=== PATIENT | male | born 1950 | race Caucasian/White ===

== ENCOUNTER 2017-12-16 18:26 | Emergency (ER) | payer MEDICARE ==
[~2017-12-16] VITALS: Ht 182.9 cm; Wt 120.2 kg
[2017-12-16] MEDS ORDERED: TETANUS/DIPHTHERIA TOX ADULT 0.5 ML SYR IM ONE (19:15)
[2017-12-16] MEDS ORDERED: LIDOCAINE 1% W/EPINEPHRINE 20 ML VIAL INJ ONE (19:15)
--- NOTE | 2017-12-16 19:29 | Diagnostic Imaging Report ---
Examination: CT head without contrast Clinical Indication: Fall; head injury. Technique: Transaxial noncontrast images from the skull base through the vertex were obtained. Sagittal and coronal reformatted images were done. Comparison: None. Findings: Scalp: No abnormalities. Bones: Intact. No fractures. No blastic or lytic lesions. Brain sulci: Appropriate for patient's age. Ventricles: Normal in size and configuration. No hydrocephalus. . Extra-axial space: No abnormalities. Parenchyma: There are mild confluent areas of low-attenuation within subcortical and periventricular white matter, nonspecific, but could represent microvascular ischemic disease. No masses, hemorrhage, or acute or chronic cortical based vascular insults. Suprasellar region: No abnormalities. Craniocervical junction: The foramen magnum is patent. No Chiari one malformation. Impression: 1. No acute intracranial finding. 2. Mild chronic microvascular ischemic change. Signed by: Dr. Temi Fan M.D. on 12/16/2017 7:26 PM
--- NOTE | 2017-12-16 19:59 | Diagnostic Imaging Report ---
Examination: CT CERVICAL SPINE WITHOUT CONTRAST HISTORY:Neck pain. Fall. COMPARISON:None. TECHNIQUE: Multidetector helical axial images were obtained without contrast from the foramen magnum to T1. Coronal and sagittal reformatted images were done. Bone and soft tissue windows were evaluated. FINDINGS: Alignment:Normal alignment and lordosis. Vertebrae: Normal height and density. No acute fracture, infection or neoplasm. Disc space heights: Normal height. Caliber of spinal canal: Developmentally normal. Posterior fossa and craniocervical junction: Foramen magnum patent. No Chiari 1 malformation. Soft tissues: No abnormality. Degenerative changes: Anterior osteophytosis from C4-C7. No disc bulge/ herniation or foraminal or canal stenosis. Additional findings: None. IMPRESSION: No acute abnormalities. Signed by: Dr. Temi Fan M.D. on 12/16/2017 7:55 PM
--- NOTE | 2017-12-16 20:13 | Diagnostic Imaging Report ---
Examination: CT Face without Contrast History:Fall; face laceration. Comparison studies: None Technique: Axial images were obtained through the maxillofacial region. Coronal and sagittal reconstructions obtained from the axial data. Intravenous contrast: None Findings: Soft tissues: Multiple radiopaque foreign bodies in rhe frontal scalp. Left greater than right nasal cavity opacification. Bones: Bilateral nasal and septal bone and posterior right maxillary sinus wall fractures. There is an avulsion fracture of the lateral plate of the left pterygoid and anterior midline maxilla which extends laterally to the anterior left maxillary sinus wall and inferiorly to separate the roots of the bilateral central and left lateral incisor and canine teeth from the maxilla. Orbits: Globes: Intact Extra or intraconal abnormalities: None. Paranasal sinuses: Clear. Nasal cavity: As above. IMPRESSION: Left justyna-[place] type I with loosening of the roots of the bilateral central and left lateral incisor and canine teeth from the maxilla. Additional fractures, as above. Septal fracture with left greater than right nasal cavity opacification, concerning for septal hematoma. Multiple radiopaque foreign bodies in the frontal scalp. Signed by: Dr. Temi Fan M.D. on 12/16/2017 8:09 PM
[2017-12-16] MEDS ORDERED: ONDANSETRON HCL INJ 2 MG/ML VIAL IV STA (21:59)
[2017-12-16] MEDS ORDERED: MORPHINE SULFATE 2 MG/ML SYR IV STA (21:59)
== END 2017-12-16 22:17 | disposition other institution (70) ==
LOC: ER 18:37
PROC: 0CQ13ZZ Repair Lower Lip, Percutaneous Approach (ICD-10-PCS; principal; 2017-12-16)
DX: S06.9X1A Unspecified intracranial injury with loss of consciousness of 30 minutes or less, initial encounter (principal); S01.511A Laceration without foreign body of lip, initial encounter; S02.411A LeFort I fracture, initial encounter for closed fracture; S02.80XA Fracture of other specified skull and facial bones, unspecified side, initial encounter for closed fracture; W01.190A Fall on same level from slipping, tripping and stumbling with subsequent striking against furniture, initial encounter; Y92.008 Other place in unspecified non-institutional (private) residence as the place of occurrence of the external cause
CPT/HCPCS: 12011; 70450; 70486; 72125; 90714; 93005; 99284; J2270; J2405

== ENCOUNTER → 2019-03-09 | Outpatient (CLI) | payer MEDICARE, OTHER ==
--- NOTE | 2019-03-09 14:04 | Diagnostic Imaging Report ---
PROCEDURE: CT CHEST WITHOUT CONTRAST CT scan of the chest WITHOUT intravenous contrast, using standard protocol. TECHNIQUE: The chest was scanned utilizing a multidetector helical scanner from the apex to the level of the adrenal glands. No IV contrast was administered because of referring physician request. Coronal and sagittal multiplanar reformations were obtained. COMPARISON: None. INDICATIONS: NICOTENE DEPENDENCE/ PLEURAL EFFUSION FINDINGS: Lines/tubes: None. Lungs and Airways: There are scattered foci of linear opacity compatible with scar or subsegmental atelectasis bilaterally. 4 mm left apical solid nodule (series 3 image 13.) Prominent right basal extrapleural fat with linear opacity likely reflective of scar in the adjacent medial segment of the lower lobe. Pleura: No pleural effusion. Prominent right basal extrapleural fat. No pneumothorax. Heart and mediastinum: The thyroid gland is unremarkable. There is atherosclerotic calcification of the thoracic aorta which is borderline ectatic (3.9 cm). Atherosclerotic calcification of the left circumflex coronary artery. No pericardial effusion. No axillary, hilar, or mediastinal lymphadenopathy. No pericardial effusion. Soft tissues: No focal soft tissue abnormalities. Abdomen: Visualized portions of the liver, gallbladder, spleen, pancreas, and adrenals show no focal abnormalities. Bones: No osseous destructive lesions. Multilevel degenerative disc changes and facet arthropathy of the lower cervical and thoracic spine. Degenerative changes of the glenohumeral joints left worse than right. IMPRESSION: Prominent right basal extrapleural fat with adjacent lower lobe fibrotic changes likely post infectious or inflammatory in nature. 4 mm solid nodule in the left lung apex may be evaluated for stability by CT scan the chest without contrast in one year if the patient is at high risk of malignancy per Fleischner Society 2017 guidelines. Atherosclerotic vascular disease with borderline ectasia of the descending thoracic aorta (3.9 cm). Dictated by: James Cage M.D. on 03/09/2019 at 14:09 Electronically approved by: James Cage M.D. on 03/09/2019 at 14:09
== END ==
LOC: CT 12:51
PROVIDERS: ATTEND Family Medicine
DX: J91.8 Pleural effusion in other conditions classified elsewhere (principal); F17.210 Nicotine dependence, cigarettes, uncomplicated
CPT/HCPCS: 71250